=== PATIENT | female | born 1955 | race Asian ===

== ENCOUNTER 2020-07-28 05:44 | Emergency (ER) | payer OTHER ==
[~2020-07-28] VITALS: Ht 152.4 cm; Wt 54.5 kg
[2020-07-28] MEDS ORDERED: HYDR12.54 PO (06:01)
[2020-07-28] MEDS ORDERED: SIMV-46 PO (06:01)
[2020-07-28] MEDS ORDERED: ASPI-728 PO (06:01)
[2020-07-28] MEDS ORDERED: LOSA100T58 PO (06:01)
[2020-07-28] MEDS ORDERED: LORazepam 1 MG TABLET PO ONE (06:30)
[2020-07-28 06:54] VITALS: BP 141/89
== END 2020-07-28 06:58 | disposition home or self-care (01) ==
LOC: EMS 05:51
DX: F41.9 Anxiety disorder, unspecified (principal); G47.00 Insomnia, unspecified; I10 Essential (primary) hypertension; Z79.82 Long term (current) use of aspirin
CPT/HCPCS: 99283